=== PATIENT | female | born 2005 | race African-American/Black ===

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

== ENCOUNTER 2023-03-19 06:17 | Emergency (ER) | payer OTHER ==
[2023-03-19] MEDS ORDERED: ACETAMINOPHEN 1000 MG/100 ML BAG IVPB ONE (06:35)
[2023-03-19] MEDS ORDERED: LACTATED RINGERS SOLUTION 1000 ML INFUS.BAG IV ONE ×2 (06:35→08:43)
[2023-03-19] MEDS ORDERED: ONDANSETRON 4 MG/2 ML VIAL IVPUSH ONE ×2 (06:35→07:34)
[2023-03-19] MEDS ORDERED: FAMOTIDINE 20 MG/50 ML IVPB 20 MG/50 ML MG IVPB ONE ×2 (06:35→06:45)
[2023-03-19 06:38] VITALS: RESP 18; BMI 23.8
[2023-03-19] MEDS ORDERED: ONDANSETRON 4 MG/2 ML VIAL ONE ×2 (06:45→07:49)
[2023-03-19 07:12] LABS: BASO % 0.1 % (0-2.0); EOS % 0.8 % (0-4.5); HEMATOCRIT 39.5 % (32.4-45.2); HEMOGLOBIN 13.2 GM/dL (10.7-15.3); LYMPH % 12.1 % (8-40); MCH 29.5 pg (25.7-33.7); MCHC 33.4 g/dl (32.0-36.0); MEAN CELL VOLUME 88.3 fl (80-96); MONO % 4.2 % (3.8-10.2); NEUT % 82.8 % (42.8-82.8); PLATELET COUNT 285 10^3/uL (134-434); RBC 4.48 M/mm3 (3.60-5.2); WHITE BLOOD COUNT 16.4 K/mm3 (4.0-10.0)
[2023-03-19] MEDS ORDERED: ACETAMINOPHEN INJECTION 100 ML IVPB ONE (07:23)
[2023-03-19] MEDS ORDERED: SUCRALFATE 1 GM TABLET (FP) PO ONE (08:00)
[2023-03-19 08:04] LABS: POTASSIUM 3.5 mmol/L (3.5-5.1)
[2023-03-19 08:08] LABS: BLOOD UREA NITROGEN 15.4 mg/dL (7-18); CALCIUM 8.6 mg/dL (8.5-10.1)
[2023-03-19 08:09] LABS: ALBUMIN 3.6 g/dl (3.4-5.0); MAGNESIUM 1.8 mg/dL (1.8-2.4)
[2023-03-19 08:11] LABS: CREATININE 0.8 mg/dL (0.55-1.3)
[2023-03-19 08:12] LABS: BILIRUBIN,TOTAL 0.8 mg/dL (0.2-1); TOT PROT 7.1 g/dl (6.4-8.2)
[2023-03-19] MEDS ORDERED: SUCRALFATE 1 GM TABLET (FP) ONE (08:32)
[2023-03-19 10:00] LABS: PH,URINE 5.5 (5.0-8.0); URINE APPEARANCE CLEAR; URINE BILIRUBIN NEGATIVE (NEGATIVE); URINE COLOR YELLOW; URINE GLUCOSE (UA) NEGATIVE (NEGATIVE); URINE KETONE NEGATIVE (NEGATIVE); URINE LEUK ESTERASE NEGATIVE (NEGATIVE); URINE NITRITE NEGATIVE (NEGATIVE); URINE PROTEIN NEGATIVE (NEGATIVE)
[2023-03-19 10:09] VITALS: BP 96/54; PULSE 81; TEMP 98.4
== END 2023-03-19 10:08 | disposition home or self-care (01) ==
LOC: JER 06:17
PROC: 3E033GC Introduction of Other Therapeutic Substance into Peripheral Vein, Percutaneous Approach (ICD-10-PCS; principal; 2023-03-19)
PROC: 3E033NZ Introduction of Analgesics, Hypnotics, Sedatives into Peripheral Vein, Percutaneous Approach (ICD-10-PCS; 2023-03-19)
PROC: 3E033GC Introduction of Other Therapeutic Substance into Peripheral Vein, Percutaneous Approach (ICD-10-PCS; 2023-03-19)
PROC: 3E033GC Introduction of Other Therapeutic Substance into Peripheral Vein, Percutaneous Approach (ICD-10-PCS; 2023-03-19)
DX: R11.2 Nausea with vomiting, unspecified (principal); R10.84 Generalized abdominal pain; R00.0 Tachycardia, unspecified; R63.0 Anorexia; Z20.822 Contact with and (suspected) exposure to COVID-19
CPT/HCPCS: 0241U-QW; 36415; 80053; 81003; 83690; 83735; 84703; 85025; 87086; 99284-25

== ENCOUNTER 2023-06-29 03:50 | Emergency (ER) | payer OTHER ==
[2023-06-29 04:01] VITALS: TEMP 98.5; BMI 21.2
[2023-06-29 06:37] LABS: EPI CELLS 10 /uL (0-25.1); HYALINE CASTS 0 /uL (0-3.1); URINE APPEARANCE CLEAR; URINE BACTERIA 3602 /uL (0-1359); URINE BILIRUBIN NEGATIVE (NEGATIVE); URINE COLOR YELLOW; URINE GLUCOSE (UA) NEGATIVE (NEGATIVE); URINE KETONE NEGATIVE (NEGATIVE); URINE LEUK ESTERASE TRACE (NEGATIVE); URINE NITRITE NEGATIVE (NEGATIVE); URINE PROTEIN NEGATIVE (NEGATIVE); URINE RBC 782 /uL (0-23.9); URINE WBC 40 /uL (0-25.8)
[2023-06-29] MEDS ORDERED: ACETAMINOPHEN 325 MG TABLET (FP) PO ONE (07:49)
[2023-06-29] MEDS ORDERED: ACETAMINOPHEN 325 MG TABLET (FP) ONE (07:56)
[2023-06-29 08:14] LABS: HCG,QUALITATIVE URINE NEGATIVE
[2023-06-29] MEDS ORDERED: CEPHALEXIN MONOHYDRATE 500 MG CAPSULE (UD) PO ONE (08:21)
[2023-06-29] MEDS ORDERED: CEPHALEXIN MONOHYDRATE 500 MG CAPSULE (UD) ONE (08:35)
[2023-06-29 08:44] VITALS: BP 109/72; PULSE 70; RESP 16
== END 2023-06-29 08:44 | disposition home or self-care (01) ==
LOC: JER 03:50
DX: N93.9 Abnormal uterine and vaginal bleeding, unspecified (principal); R10.30 Lower abdominal pain, unspecified; G47.9 Sleep disorder, unspecified
CPT/HCPCS: 36415; 81003; 84703; 87086; 87186; 87491; 87591; 99283-25

== ENCOUNTER 2023-07-25 13:57 | Emergency (ER) | payer OTHER ==
[2023-07-25 14:02] VITALS: BP 101/62; PULSE 65; RESP 18; TEMP 98.3; BMI 21.5
[2023-07-25] MEDS ORDERED: FAMOTIDINE 10 MG TABLET PO ONE (14:30)
[2023-07-25] MEDS ORDERED: ONDANSETRON 4 MG TABLET PO ONE ×2 (14:30→14:37)
[2023-07-25] MEDS ORDERED: FAMOTIDINE 20 MG TABLET ONE (14:37)
[2023-07-25] MEDS ORDERED: ACETAMINOPHEN 500 MG TABLET (FP) PO ONE (15:14)
[2023-07-25] MEDS ORDERED: ACETAMINOPHEN 325 MG TABLET (FP) ONE (15:33)
== END 2023-07-25 16:42 | disposition home or self-care (01) ==
LOC: JER 13:57
DX: R11.2 Nausea with vomiting, unspecified (principal); R09.81 Nasal congestion; Z20.822 Contact with and (suspected) exposure to COVID-19
CPT/HCPCS: 0241U-QW; 84703; 99283-25

== ENCOUNTER 2023-09-14 08:09 | Emergency (ER) | payer OTHER ==
[2023-09-14] MEDS ORDERED: ACETAMINOPHEN INJECTION 100 ML IVPB ONE (10:04)
[2023-09-14 10:06] VITALS: RESP 17; BMI 21.2
[2023-09-14] MEDS: ACETAMINOPHEN 1000 MG/100 ML BAG IVPB ONE (10:45)
[2023-09-14 10:53] LABS: BASO % 0.2 % (0-2.0); EOS % 2.6 % (0-4.5); HEMATOCRIT 36.1 % (32.4-45.2); HEMOGLOBIN 12.2 GM/dL (10.7-15.3); MCH 29.7 pg (25.7-33.7); MCHC 33.8 g/dl (32.0-36.0); MEAN PLT VOLUME 7.3 fl (7.5-11.1); MONO % 5.1 % (3.8-10.2); NEUT % 73.1 % (42.8-82.8); PLATELET COUNT 244 10^3/uL (134-434); RBC 4.11 M/mm3 (3.60-5.2); RDW 12.8 % (11.6-15.6); WHITE BLOOD COUNT 9.5 K/mm3 (4.0-10.0)
[2023-09-14 10:58] LABS: EPI CELLS 12 /uL (0-25.1); HYALINE CASTS 1 /uL (0-3.1); PH,URINE 6.5 (5.0-8.0); URINE APPEARANCE CLOUDY; URINE BILIRUBIN NEGATIVE (NEGATIVE); URINE COLOR YELLOW; URINE GLUCOSE (UA) NEGATIVE (NEGATIVE); URINE KETONE NEGATIVE (NEGATIVE); URINE LEUK ESTERASE 3+ (NEGATIVE); URINE NITRITE NEGATIVE (NEGATIVE); URINE PROTEIN 2+ (NEGATIVE); URINE RBC 727 /uL (0-23.9); URINE UROBILINOGEN 0.2 mg/dL (0.2-1.0); URINE WBC 3193 /uL (0-25.8)
[2023-09-14 11:00] LABS: URINE BACTERIA 36945 /uL (0-1359)
[2023-09-14 11:11] LABS: POTASSIUM 3.7 mmol/L (3.5-5.1)
[2023-09-14 11:13] LABS: ALBUMIN 3.6 g/dl (3.4-5.0); BLOOD UREA NITROGEN 10.7 mg/dL (7-18); CALCIUM 8.8 mg/dL (8.5-10.1); HCG,QUALITATIVE URINE NEGATIVE
[2023-09-14 11:16] LABS: CREATININE 0.7 mg/dL (0.55-1.3)
[2023-09-14 11:18] LABS: BILIRUBIN,TOTAL 0.7 mg/dL (0.2-1); TOT PROT 7.1 g/dl (6.4-8.2)
[2023-09-14] MEDS ORDERED: CEFTRIAXONE 2 GM/100 ML BAG IVPB ONE (11:28)
[2023-09-14] MEDS ORDERED: CEFTRIAXONE 1 GM/50 ML BAG ONE (11:31)
[2023-09-14] MEDS: CEFTRIAXONE 1 GM in DEXTROSE 5%-WATER - 100 ML IVPB ONE (12:08)
[2023-09-14 15:41] VITALS: BP 100/56; PULSE 72; TEMP 98.9
== END 2023-09-14 16:19 | disposition home or self-care (01) ==
LOC: JER 08:09
PROC: 3E03329 Introduction of Other Anti-infective into Peripheral Vein, Percutaneous Approach (ICD-10-PCS; principal; 2023-09-14)
PROC: 3E033NZ Introduction of Analgesics, Hypnotics, Sedatives into Peripheral Vein, Percutaneous Approach (ICD-10-PCS; 2023-09-14)
DX: R10.30 Lower abdominal pain, unspecified (principal); N30.01 Acute cystitis with hematuria; R30.0 Dysuria
CPT/HCPCS: 36415; 74177-TC; 76830-TC; 80053; 81003; 84703; 85025; 87086; 87186; 87491; 87591; 96365; 96375; 99285-25; J0131; Q9967

== ENCOUNTER 2023-10-07 16:42 | Emergency (ER) | payer OTHER ==
[2023-10-07 16:51] VITALS: BP 115/74; PULSE 89; RESP 20; TEMP 97.8; BMI 20.2
[2023-10-07] MEDS ORDERED: ACETAMINOPHEN INJECTION 100 ML IVPB ONE (17:42)
[2023-10-07 17:49] LABS: BASO % 0.6 % (0-2.0); EOS % 3.6 % (0-4.5); HEMATOCRIT 41.3 % (32.4-45.2); HEMOGLOBIN 14.2 GM/dL (10.7-15.3); LYMPH % 33.7 % (8-40); MCH 30.1 pg (25.7-33.7); MCHC 34.4 g/dl (32.0-36.0); MEAN CELL VOLUME 87.4 fl (80-96); MONO % 7.1 % (3.8-10.2); PLATELET COUNT 288 10^3/uL (134-434); RBC 4.73 M/mm3 (3.60-5.2); RDW 12.8 % (11.6-15.6); WHITE BLOOD COUNT 4.8 K/mm3 (4.0-10.0)
[2023-10-07] MEDS: SODIUM CHLORIDE 1,000 ML IV STA (17:49)
[2023-10-07] MEDS: ACETAMINOPHEN 1000 MG/100 ML BAG IVPB ONE (17:50)
[2023-10-07 18:06] LABS: CHLORIDE 106 mmol/L (98-107); SODIUM 133 mmol/L (136-145)
[2023-10-07 18:09] LABS: BLOOD UREA NITROGEN 10.1 mg/dL (7-18); CO2 24 mmol/L (21-32); GLUCOSE,RANDOM 84 mg/dL (74-106)
[2023-10-07 18:12] LABS: CREATININE 0.9 mg/dL (0.55-1.3); SGOT/AST 57 U/L (15-37)
[2023-10-07 18:13] LABS: TOT PROT 8.2 g/dl (6.4-8.2)
[2023-10-07 18:14] LABS: ALK PHOS 71 U/L (45-117)
[2023-10-07 18:25] LABS: EPI CELLS 23 /uL (0-25.1); HYALINE CASTS 11 /uL (0-3.1); PH,URINE 5.5 (5.0-8.0); URINE APPEARANCE TURBID; URINE BACTERIA 26 /uL (0-1359); URINE BILIRUBIN 1+ (NEGATIVE); URINE COLOR ORANGE; URINE GLUCOSE (UA) NEGATIVE (NEGATIVE); URINE KETONE NEGATIVE (NEGATIVE); URINE LEUK ESTERASE 2+ (NEGATIVE); URINE NITRITE NEGATIVE (NEGATIVE); URINE PROTEIN 3+ (NEGATIVE); URINE RBC 28991 /uL (0-23.9); URINE WBC 12398 /uL (0-25.8)
[2023-10-07 18:28] LABS: ANION GAP 4 mmol/L (4-13); POTASSIUM 8.5 mmol/L (3.5-5.1); SGPT/ALT 22 U/L (13-61)
[2023-10-07 18:40] LABS: HCG,QUALITATIVE URINE Negative
[2023-10-07 19:29] LABS: POTASSIUM 4.3 mmol/L (3.5-5.1)
[2023-10-07 19:31] LABS: BLOOD UREA NITROGEN 9.6 mg/dL (7-18); CALCIUM 8.4 mg/dL (8.5-10.1)
[2023-10-07 19:35] LABS: CREATININE 0.8 mg/dL (0.55-1.3)
== END 2023-10-07 22:08 | disposition home or self-care (01) ==
LOC: JER 16:42
PROC: 3E033NZ Introduction of Analgesics, Hypnotics, Sedatives into Peripheral Vein, Percutaneous Approach (ICD-10-PCS; principal; 2023-10-07)
PROC: 3E0337Z Introduction of Electrolytic and Water Balance Substance into Peripheral Vein, Percutaneous Approach (ICD-10-PCS; 2023-10-07)
DX: R10.30 Lower abdominal pain, unspecified (principal); R30.0 Dysuria; R11.0 Nausea; N30.00 Acute cystitis without hematuria
CPT/HCPCS: 36415; 76830-TC; 80048; 80053; 81003; 83690; 84703; 85025; 87086; 87186; 87491; 87591; 99284-25; J0131

== ENCOUNTER 2023-12-14 22:30 | Emergency (ER) | payer OTHER ==
[2023-12-14 22:34] VITALS: BP 103/72; PULSE 79; RESP 17; TEMP 98.2; BMI 21.0
[2023-12-15] MEDS: SODIUM PHOSPHATE/NA BIPHOS 133 ML ENEMA PR ONE (00:05)
== END 2023-12-15 00:05 | disposition home or self-care (01) ==
LOC: JERFT 22:30
DX: K59.00 Constipation, unspecified (principal)
CPT/HCPCS: 74018-TC-FY; 99283-25

== ENCOUNTER 2024-03-26 21:06 | Emergency (ER) | payer OTHER ==
[2024-03-26 21:14] VITALS: BP 111/73; RESP 18; BMI 22.8
[2024-03-26] MEDS ORDERED: ACETAMINOPHEN 500 MG TABLET (FP) ONE (21:32)
[2024-03-26] MEDS ORDERED: IBUPROFEN 600 MG TABLET (FP) PO ONE (21:32)
[2024-03-26] MEDS: ACETAMINOPHEN 500 MG TABLET (FP) PO ONE (21:35)
[2024-03-26] MEDS: IBUPROFEN 600 MG TABLET (FP) PO ONE (21:35)
[2024-03-26 22:03] VITALS: PULSE 108; TEMP 98.4
== END 2024-03-26 22:19 | disposition home or self-care (01) ==
LOC: JERFT 21:06
DX: R09.81 Nasal congestion (principal); J02.9 Acute pharyngitis, unspecified; J06.9 Acute upper respiratory infection, unspecified; K59.00 Constipation, unspecified; U07.1 COVID-19
CPT/HCPCS: 0241U-QW; 99283-25

== ENCOUNTER 2024-03-30 05:24 | Emergency (ER) | payer OTHER ==
[2024-03-30 05:40] VITALS: BP 108/73; PULSE 103; RESP 20; TEMP 98.2; BMI 22.8
[2024-03-30] MEDS ORDERED: predniSONE 20 MG TABLET (UD) ONE (06:04)
[2024-03-30] MEDS ORDERED: ALBUTEROL SO4 2.5/IPRATROPIUM 0.5 INH SOL 3 ML VIAL.NEB. NEB ONE (06:04)
[2024-03-30] MEDS: ALBUTEROL SO4 2.5/IPRATROPIUM 0.5 INH SOL 3 ML VIAL.NEB. NEB ONE (06:14)
[2024-03-30] MEDS: predniSONE 20 MG TABLET (UD) PO ONE (06:15)
== END 2024-03-30 07:56 | disposition home or self-care (01) ==
LOC: JER 05:24
PROC: 3E0F7GC Introduction of Other Therapeutic Substance into Respiratory Tract, Via Natural or Artificial Opening (ICD-10-PCS; principal; 2024-03-30)
DX: U07.1 COVID-19 (principal); J45.901 Unspecified asthma with (acute) exacerbation; J02.9 Acute pharyngitis, unspecified; R09.81 Nasal congestion; R07.89 Other chest pain
CPT/HCPCS: 0241U-QW; 99283-25

== ENCOUNTER 2024-05-09 19:06 | Emergency (ER) | payer OTHER ==
[2024-05-09 19:42] VITALS: BMI 22.8
[2024-05-09] MEDS ORDERED: ACETAMINOPHEN INJECTION 100 ML ONE (20:19)
[2024-05-09] MEDS: ACETAMINOPHEN 1000 MG/100 ML BAG IVPB ONE (20:33)
[2024-05-09 20:40] LABS: BASO % 0.6 % (0-2.0); EOS % 1.1 % (0-4.5); HEMATOCRIT 37.1 % (32.4-45.2); HEMOGLOBIN 12.4 GM/dL (10.7-15.3); LYMPH % 25.3 % (8-40); MCH 29.3 pg (25.7-33.7); MCHC 33.5 g/dl (32.0-36.0); MEAN CELL VOLUME 87.4 fl (80-96); MEAN PLT VOLUME 7.2 fl (7.5-11.1); MONO % 7.5 % (3.8-10.2); NEUT % 65.5 % (42.8-82.8); PLATELET COUNT 300 10^3/uL (134-434); RBC 4.24 M/mm3 (3.60-5.2); RDW 13.6 % (11.6-15.6); WHITE BLOOD COUNT 8.3 K/mm3 (4.0-10.0)
[2024-05-09 20:46] LABS: EPI CELLS >36 /uL (0-25.1); HYALINE CASTS 2 /uL (0-3.1); URINE APPEARANCE CLOUDY; URINE BACTERIA 889 /uL (0-1359); URINE BILIRUBIN NEGATIVE (NEGATIVE); URINE COLOR YELLOW; URINE GLUCOSE (UA) NEGATIVE (NEGATIVE); URINE KETONE TRACE (NEGATIVE); URINE LEUK ESTERASE 1+ (NEGATIVE); URINE NITRITE NEGATIVE (NEGATIVE); URINE PROTEIN NEGATIVE (NEGATIVE); URINE RBC 17 /uL (0-23.9); URINE WBC 75 /uL (0-25.8)
[2024-05-09 21:02] LABS: INR 1.01 (0.83-1.09); PROTHROMBIN TIME (PATIENT) 11.4 SEC (9.7-13.0)
[2024-05-09 21:05] LABS: ACTIVATED PTT 35.2 SECONDS (25.2-36.5)
[2024-05-09 21:06] LABS: POTASSIUM 3.7 mmol/L (3.5-5.1)
[2024-05-09 21:08] LABS: ALBUMIN 4.3 g/dl (3.4-5.0); CALCIUM 9.8 mg/dL (8.5-10.1)
[2024-05-09 21:09] LABS: BLOOD UREA NITROGEN 9.4 mg/dL (7-18)
[2024-05-09 21:12] LABS: CREATININE 0.9 mg/dL (0.55-1.3)
[2024-05-09 21:13] LABS: BILIRUBIN,TOTAL 1.1 mg/dL (0.2-1); TOT PROT 7.7 g/dl (6.4-8.2)
[2024-05-09] MEDS ORDERED: AMOX TR/POT CLAV 875MG/125MG TABLETS (FP) ONE (23:19)
[2024-05-09] MEDS: AMOX TR/POT CLAV 875MG/125MG TABLETS (FP) PO ONE (23:27)
[2024-05-09 23:33] VITALS: BP 100/50; PULSE 70; RESP 16; TEMP 97.9
== END 2024-05-09 23:33 | disposition home or self-care (01) ==
LOC: JER 19:06
PROC: 3E033NZ Introduction of Analgesics, Hypnotics, Sedatives into Peripheral Vein, Percutaneous Approach (ICD-10-PCS; principal; 2024-05-09)
DX: O23.40 Unspecified infection of urinary tract in pregnancy, unspecified trimester (principal); O26.899 Other specified pregnancy related conditions, unspecified trimester; R10.31 Right lower quadrant pain; R10.32 Left lower quadrant pain; R10.13 Epigastric pain; Z3A.00 Weeks of gestation of pregnancy not specified
CPT/HCPCS: 36415; 76817-TC; 80053; 81003; 83690; 84702; 85025; 85610; 85730; 86850; 86900; 86901; 87086; 96374; 99284-25; J0131